=== PATIENT | male | born 1965 | race Caucasian/White ===

== ENCOUNTER 2020-07-12 03:17 | Observation (INO) | payer OTHER ==
[~2020-07-12] VITALS: Ht 182.9 cm; Wt 83.5 kg
[2020-07-12 03:45] LABS: BASOPHILS % (AUTO) 0.6 % (0.0-5.0); EOSINOPHILS % (AUTO) 1.6 % (0.0-8.0); HEMATOCRIT 44.5 % (42-54); LYMPHOCYTES % (AUTO) 43.9 % (21.0-51.0); MEAN CORPUSCULAR HEMOGLOBIN 31.4 pg (27.0-33.0); MEAN CORPUSCULAR HGB CONC 33.5 g/dL (32.0-36.0); MEAN CORPUSCULAR VOLUME 93.7 fL (79-99); MONOCYTES % (AUTO) 11.8 % (3.0-13.0); NEUTROPHILS % (AUTO) 41.9 % (40.0-77.0); PLATELET COUNT (AUTO) 215 K/uL (130-400); RED BLOOD CELL COUNT(AUTO) 4.75 MIL/uL (4.50-6.20); RED CELL DISTRIBUTION WIDTH 11.9 % (11.0-15.5); WHITE BLOOD COUNT (AUTO) 6.4 K/uL (4.8-10.8)
[2020-07-12 03:56] LABS: CREATININE 0.9 mg/dL (0.5-1.5); POTASSIUM 3.5 mmol/L (3.5-5.1)
[2020-07-12 04:04] LABS: BILIRUBIN,TOTAL 1.7 mg/dL (0.2-1.0); TOTAL PROTEIN, SERUM 7.6 g/dL (6.0-8.3)
[2020-07-12] MEDS ORDERED: ASPIRIN 325 MG TABLET ONE (04:27)
[2020-07-12 04:43] LABS: APPEARANCE,URINE Clear (CLEAR); BILIRUBIN,URINE Negative (NEGATIVE); COLOR,URINE Yellow (YELLOW); GLUCOSE, URINE (UA) Negative (NEGATIVE); KETONES,URINE Negative (NEGATIVE); LEUKOCYTE ESTERASE ,URINE Negative (NEGATIVE); NITRATE,URINE Negative (NEGATIVE); OCCULT BLOOD,URINE Negative (NEGATIVE); PROTEIN,URINE Negative (NEGATIVE)
[2020-07-12 04:50] LABS: AMPHET/METH SCREEN,URINE NEGATIVE (NEGATIVE); BARBITURATE SCREEN, URINE NEGATIVE (NEGATIVE); BENZODIAZEPINES SCREEN,URINE NEGATIVE (NEGATIVE); CANNABINOID SCREEN,URINE NEGATIVE (NEGATIVE); COCAINE SCREEN,URINE NEGATIVE (NEGATIVE); OPIATE SCREEN,URINE NEGATIVE (NEGATIVE); PHENCYCLIDINE SCREEN,URINE NEGATIVE (NEGATIVE)
[2020-07-12 04:58] LABS: INR 1.11 (0.85-1.15)
[2020-07-12 05:00] LABS: PARTIAL THROMBOPLASTIN TIME 29.1 SEC (26.3-35.5)
[2020-07-12] MEDS ORDERED: ASPIRIN 81MG TAB.CHEW ONE (11:00)
[2020-07-12 11:28] LABS: HEMOGLOBIN A1C 5.7 % (4.0-6.0)
[2020-07-12 11:46] LABS: THYROID STIMULATING HORMONE 0.84 uIU/mL (0.36-3.74)
[2020-07-12 17:36] VITALS: BP 114/70
[2020-07-12 20:00] VITALS: BP 101/64
[2020-07-12 20:03] VITALS: BP 132/80
[2020-07-12 20:09] VITALS: BP 108/76
[2020-07-12 23:31] VITALS: BP 105/62
[2020-07-13 04:00] VITALS: BP 104/67
[2020-07-13 08:00] VITALS: BP 122/71
[2020-07-13] MEDS ORDERED: ASPIRIN 81MG TAB.CHEW PO SCH (09:00)
[2020-07-13] MEDS ORDERED: MECLIZINE HCL 25 MG TABLET PO PRN (09:15)
[2020-07-13 12:20] VITALS: BP_SYST 115; BP_SYST 122; BP_SYST 130; BP_DIAS 74; BP_DIAS 75
== END 2020-07-13 14:40 | disposition home or self-care (01) ==
LOC: EDH 03:17 → EDHIP 08:56 → 3AH 15:56
PROVIDERS: ADMIT Internal Medicine; ATTEND Internal Medicine
DX: R00.1 Bradycardia, unspecified (principal); Z20.822 Contact with and (suspected) exposure to COVID-19; R42 Dizziness and giddiness; E78.5 Hyperlipidemia, unspecified; R07.89 Other chest pain; Z79.899 Other long term (current) drug therapy
CPT/HCPCS: 36415; 71045; 80053; 80061; 80305; 81003; 82150; 82550; 83036; 83690; 84443; 84484 ×3; 85025; 85610; 85730; 87426; 93005 ×3; 93306; 93356; 99285; G0378 ×29; U0003